=== PATIENT | male | born 1990 | race Caucasian/White ===

== ENCOUNTER 2017-04-22 23:50 | Emergency (ER) | payer SELFPAY ==
[~2017-04-22] VITALS: Ht 170.2 cm; Wt 74.8 kg
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
[2017-04-23] MEDS ORDERED: KETOROLAC TROMETHAMINE 30 MG/ML INJ. IV ONE (01:00)
[2017-04-23] MEDS ORDERED: HYDROmorphone 2 MG/ML VIAL IV ONE (01:00)
[2017-04-23] MEDS ORDERED: DIPHTH,PERTUSS(ACELL),TET TOX 0.5 ML DISP.SYRIN. VAX IM ONE (01:00)
[2017-04-23] MEDS ORDERED: ONDANSETRON PF 4 MG/2 ML VIAL. ONE (01:10)
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
[2017-04-23] MEDS ORDERED: ONDANSETRON PF 4 MG/2 ML VIAL. IV ONE (01:30)
[2017-04-23] MEDS ORDERED: CEPH-264 PO (03:18)
[2017-04-23] MEDS ORDERED: HYDR-971 PO (03:18)
[2017-04-23 03:22] VITALS: BP 126/67
[2017-04-23] MEDS ORDERED: CEPHALEXIN 250 MG CAPSULE. PO ONE (04:00)
[2017-04-23] MEDS ORDERED: HYDROcodone/APAP 5/325MG 1 TAB TABLET PO ONE (04:00)
== END 2017-04-23 03:22 | disposition home or self-care (01) ==
LOC: ER 23:50 → EEVIPCON 23:50 → ER 04-23 03:22
DX: S02.2XXA Fracture of nasal bones, initial encounter for closed fracture (principal); S02.82XA Fracture of other specified skull and facial bones, left side, initial encounter for closed fracture; S01.511A Laceration without foreign body of lip, initial encounter; Z23 Encounter for immunization; Y04.0XXA Assault by unarmed brawl or fight, initial encounter; Y93.89 Activity, other specified; Y92.89 Other specified places as the place of occurrence of the external cause; Y99.8 Other external cause status
CPT/HCPCS: 70450; 70486; 90471; 90715; 96374; 96375; 99284; J1170; J1885; J2405